=== PATIENT | female | born 1940 | race Caucasian/White ===

== ENCOUNTER 2021-03-20 08:23 | Emergency (ER) | payer MEDICARE, OTHER ==
[2021-03-20 08:34] VITALS: BP 134/81
--- NOTE | 2021-03-20 08:59 | XRAY Report ---
PROCEDURE: Wrist 3 View RT INDICATIONS: fall/injury TECHNIQUE: 3 views of the wrist were acquired. COMPARISON: None FINDINGS: Bones: No fractures or dislocations. No suspicious bony lesions. Focal degenerative change is seen involving the carpometacarpal joint, with milder degenerative changes seen elsewhere. Scaphoid view: No scaphoid fractures are seen. Soft tissues: No suspicious soft tissue calcifications. IMPRESSION: No displaced fractures are seen on these plain films. If there is snuffbox tenderness (or other clinical concern for a fracture not seen on these images) p lease consider a dedicated CT study or a short-term follow-up plain film series, following splinting. Reviewed by: Cristo Hunt MD on 03/20/2021 7:57 AM JOSEFINA Approved by: Cristo Hunt MD on 03/20/2021 7:57 AM JOSEFINA Station ID: [id number]
--- NOTE | 2021-03-20 09:09 | ED Physician Documentation ---
History of Present Illness - Stated complaint Stated Complaint: RT ARM INJ - Chief complaint Chief Complaint: Trauma Ext - History obtained from History obtained from: Patient, Family - Additonal information Additional information: Patient comes emergency department chief complaint of mechanical fall yesterday and injury to right wrist. She states that she was walking on pavement when she tripped and fell, catching herself on her right hand. She is not sure if she twisted the wrist or if there were any "pops" or "snaps". She states that she was able to move the wrist afterward, but did notice some increasing pain on the ulnar aspect. She is also noticed a bruise on both the ulnar aspect and then radial aspect of her wrist, separately. No other complaints or injuries. No right elbow or shoulder pain. Patient states that she has no prior history of injury to that wrist. Review of Systems Ten Systems: 10 systems reviewed and negative Constitutional: reports: Reviewed and negative Eyes: reports: Reviewed and negative Ears: reports: Reviewed and negative Nose: reports: Reviewed and negative Throat: reports: Reviewed and negative Cardiac: reports: Reviewed and negative Respiratory: reports: Reviewed and negative GI: reports: Reviewed and negative : reports: Reviewed and negative Skin: reports: Other (Contusions) Musculoskeletal: reports: Joint pain Neurologic: reports: Reviewed and negative Psychiatric: reports: Reviewed and negative Endocrine: reports: Reviewed and negative Immunocompromised: reports: Reviewed and negative PD PAST MEDICAL HISTORY - Allergies Allergies/Adverse Reactions: Allergies Allergy/AdvReac Type Severity Reaction Status Date / Time No Known Drug Allergies Allergy Verified 03/20/21 08:31 PD ED PE NORMAL - Vitals Vital signs reviewed: Yes - General General: Alert and oriented X 3, No acute distress - HEENT HEENT: Atraumatic, PERRL, EOMI, Moist mucous membranes - Neck Neck: Supple, no meningeal sign - Cardiac Cardiac: Strong equal pulses - Respiratory Respiratory: No respiratory distress - Derm Derm: Warm and dry, No rash, Other (5 cm x 2.5 cm contusion over ulnar aspect of distal right forearm, and 4 cm x 2.5 cm contusion over radial aspect of distal right forearm along the long axis. Mild associated tenderness. Mild edema localized to contusions.) - Extremities Extremities: No deformity, No edema, Other (Mild point tenderness over distal ulna and the area of the styloid. No point tenderness elsewhere. Nearly full range of motion of wrist with mild pain.) - Neuro Neuro: Alert and oriented X 3, No motor deficit, No sensory deficit (Specifically, intact motor and sensory in right hand.) - Psych Psych: Normal mood, Normal affect Results - Vitals Vitals: Vital Signs - 24 hr 03/20/ 08:31 Temperature 36.6 C Heart Rate 75 Respiratory 16 Rate Blood Pressure 134/81 H O2 Saturation 95 Oxygen O2 Source Room air - Rads (name of study) R wrist XR Radiology: Final report received, EMP read indepedently, See rad report (neg) PD MEDICAL DECISION MAKING - ED course Complexity details: reviewed results, re-evaluated patient, considered differential, d/w patient, d/w family ED course: The patient was sent for x-ray of her right wrist and this is found to be negative. Patient requested an Rajesh wrap, which was given. We have discussed symptomatic management at home, as well as usual indications for return. Departure - Departure Disposition: 01 Home, Self Care Clinical Impression: Wrist contusion Qualifiers: Encounter type: initial encounter Laterality: right Qualified Code(s): S60.211A - Contusion of right wrist, initial encounter Right wrist sprain Qualifiers: Encounter type: initial encounter Qualified Code(s): S63.501A - Unspecified sprain of right wrist, initial encounter Condition: Stable Instructions: ED Sprain Wrist Comments: Your x-rays look great. The radiologist has given his final interpretation, and does not see any evidence whatsoever of a broken bone. You may use ice packs and ibuprofen as needed to help with the discomfort. You may also use the Rajesh wrap for further support. The symptoms will resolve on their own, and you may use the wrist as much as feels comfortable to you.
== END 2021-03-20 09:35 | disposition home or self-care (01) ==
LOC: ED 08:23
DX: S60.211A Contusion of right wrist, initial encounter (principal); W01.0XXA Fall on same level from slipping, tripping and stumbling without subsequent striking against object, initial encounter; Y92.89 Other specified places as the place of occurrence of the external cause
CPT/HCPCS: 99282; 99283

== ENCOUNTER 2021-03-29 08:53 | Outpatient (CLI) | payer MEDICARE, OTHER ==
[2021-03-29 09:07] LABS: BASOPHILS # (AUTO) 0.1 10^3/uL (0.0-0.1); EOSINOPHILS # (AUTO) 0.2 10^3/uL (0.0-0.7); EOSINOPHILS % (AUTO) 2.5 %; HCT - HEMATOCRIT 41.3 % (37.0-47.0); HGB - HEMOGLOBIN 13.6 g/dL (12.0-16.0); LYMPHOCYTES # (AUTO) 2.2 10^3/uL (1.5-3.5); LYMPHOCYTES % (AUTO) 36.4 %; MEAN CORPUSCULAR HEMOGLOBIN 31.7 pg (27.0-31.0); MEAN CORPUSCULAR HGB CONC 32.9 g/dL (32.0-36.0); MEAN CORPUSCULAR VOLUME 96.3 fL (81.0-99.0); MONOCYTES # (AUTO) 0.6 10^3/uL (0.0-1.0); NEUTROPHILS # (AUTO) 3.1 10^3/uL (1.5-6.6); NEUTROPHILS % (AUTO) 50.9 %; PLT - PLATELET COUNT 294 10^3/uL (130-450); RED BLOOD COUNT 4.29 10^6/uL (4.20-5.40); RED CELL DISTRIBUTION WIDTH 12.8 % (12.0-15.0); WHITE BLOOD COUNT 6.1 x10^3/uL (4.8-10.8)
[2021-03-29 09:23] LABS: ALBUMIN 4.2 g/dL (3.2-5.5); ALBUMIN/GLOBULIN RATIO 1.4 (1.0-2.2); ALKALINE PHOSPHATASE 46 IU/L (42-121); ALT ALANINE AMINOTRANSFERASE 16 IU/L (10-60); AST ASPARTATE AMINOTRANSFERASE 23 IU/L (10-42); BILIRUBIN,TOTAL 0.9 mg/dL (0.2-1.0); BUN - BLOOD UREA NITROGEN 16 mg/dL (6-20); CALCIUM 9.6 mg/dL (8.5-10.3); CARBON DIOXIDE - CO2 24 mmol/L (21-32); CHLORIDE 107 mmol/L (101-111); CHOL/HDL RATIO 3.3 (<4.4); CHOLESTEROL 244 mg/dL; CREATININE 0.7 mg/dL (0.4-1.0); GFR - MDRD 80 (>89); GLUCOSE 99 mg/dL (70-100); HDL CHOLESTEROL 74 mg/dL; LDL CHOLESTEROL,CALCULATED 155 mg/dL; LDL/HDL RATIO 2.1 (<4.4); POTASSIUM 4.5 mmol/L (3.5-5.0); SODIUM 140 mmol/L (135-145); TOTAL PROTEIN 7.2 g/dL (6.7-8.2); TRIGLYCERIDES 76 mg/dL; VLDL CHOLESTEROL 15 mg/dL
== END 2021-03-29 08:54 | disposition home or self-care (01) ==
LOC: LAB 08:53
PROVIDERS: ATTEND Internal Medicine
DX: R03.0 Elevated blood-pressure reading, without diagnosis of hypertension (principal); Z79.899 Other long term (current) drug therapy
CPT/HCPCS: 36415; 80053; 80061; 83721; 85025

== ENCOUNTER 2023-05-02 15:09 | Outpatient (CLI) | payer MEDICARE, OTHER ==
--- NOTE | 2023-05-02 15:56 | XRAY Report ---
PROCEDURE: Foot 3 View RT INDICATIONS: PAIN IN RIGHT FOOT TECHNIQUE: 3 views of the foot were acquired. COMPARISON: None. FINDINGS: Bones: No acute fractures or dislocations. No suspicious bony lesions. Metatarsus adductus and cobian ucis longus. Suspect remote fracture and the first proximal phalangeal base. There is severe first me tatarsophalangeal joint degeneration. Calcaneal spurring. Soft tissues: No suspicious soft tissue calcifications or masses. IMPRESSION: 1. No acute bony abnormality. 2. Severe first metatarsophalangeal joint degeneration. 3. Osteopenia. Reviewed by: Tayler Lovett MD on 05/02/2023 3:55 PM PDT Approved by: Tayler Lovett MD on 05/02/2023 3:55 PM PDT Station ID: [id number]
== END 2023-05-02 15:10 | disposition home or self-care (01) ==
LOC: DI 15:09
PROVIDERS: ATTEND Internal Medicine
DX: M19.071 Primary osteoarthritis, right ankle and foot (principal); M85.871 Other specified disorders of bone density and structure, right ankle and foot

== ENCOUNTER 2023-08-14 12:08 | Outpatient (CLI) | payer MEDICARE ==
--- NOTE | 2023-08-14 13:01 | XRAY Report ---
PROCEDURE: Hand 3 View LT INDICATIONS: TENDINITIS,LEFT HAND TECHNIQUE: 3 views of the hand(s) acquired. COMPARISON: None. FINDINGS: Bones: No fractures or dislocations. No suspicious bony lesions. Moderate to severe first CMC arth ritic narrowing. There is overall moderate IP degenerative narrowing most severe at the second and th ird DIP joints. Scattered periarticular osteophytes are present. Minimal appearance of scattered celina articular lucencies are present. Soft tissues: No suspicious soft tissue calcifications or masses. IMPRESSION: Arthritic changes as detailed above. Scattered periarticular lucencies which may represent subchondral cysts or erosions in appropriate cl inical and laboratory contacts. Reviewed by: Lana Tolentino MD on 08/14/2023 1:00 PM PDT Approved by: Lana Tolentino MD on 08/14/2023 1:00 PM PDT Station ID: [id number]
== END 2023-08-14 12:09 | disposition home or self-care (01) ==
LOC: DI 12:08
PROVIDERS: ATTEND Registered Nurse
DX: M19.042 Primary osteoarthritis, left hand (principal)